=== PATIENT | male | born 1975 | race Caucasian/White ===

== ENCOUNTER 2016-11-25 09:36 | Emergency (ER) | payer OTHER ==
[2016-11-25] MEDS ORDERED: diphenhydrAMINE HCL 50 MG/ML VIAL IM ONE (10:07)
[2016-11-25] MEDS ORDERED: METHYLPREDNISOLONE ACETATE 80 MG/ML VIAL IM ONE (10:08)
[2016-11-25] MEDS ORDERED: diphenhydrAMINE HCL 50 MG/ML VIAL ONE (10:11)
[2016-11-25] MEDS ORDERED: METHYLPREDNISOLONE SOD SUCC/PF 40 MG/ML VIAL ONE (10:11)
--- NOTE | 2016-11-25 10:15 | ERNOTE ---
Integumentary HPI - Narrative Date of Service: 11/25/16 - General Presenting Symptoms: rash Time Seen by Provider: 11/25/16 09:59 Source: patient Exam Limitations: no limitations - Immun/Allergies/Home Medications Immunizations: IMMUNIZATION HX Immunizations Up to Date Yes History of Influenza Vaccine No Hx Pneumococcal Vaccination No Allergies/Adverse Reactions: Allergies Allergy/AdvReac Type Severity Reaction Status Date / Time No Known Allergies Allergy Verified 11/25/16 10:02 Home Medications: HOME MEDICATIONS predniSONE [Prednisone] 3 tab PO DAILY #9 tab 11/25/16 [Last Taken Unknown] - History of Present Illness Narrative: Pt. comes in with c/o rash on his inner arms in the anticubital spaces that is itchy and [place] after he scratches it. Pt. states taht it showed up after he was working in the [employer] yesterday. Pt. denies any SOB, CP, fever, or NVD. Review of Systems - Review of Systems Constitutional: Present: no symptoms reported. Absent: recent illness, fever, chills, weakness, fatigue, malaise EYE: Present: no symptoms reported ENT: Present: no symptoms reported Respiratory: Present: no symptoms reported. Absent: shortness of breath, cough , wheezing Cardiology: Present: no symptoms reported. Absent: chest pain, palpitations, edema Gastrointestinal/Abdominal: Present: no symptoms reported Genitourinary: Present: no symptoms reported Musculoskeletal: Present: no symptoms reported Skin: Present: rash Neurological: Present: no symptoms reported. Absent: headache, dizziness/light- headedness, numbness, tingling All Other Systems: All systems neg except as marked - Patient's Past Medical History Patient History - Medical: Chronic Pain Patient History - Cardiac/Respiratory: No pertinent hx Patient History - Cancer: No Hx of Cancer Patient History - Surgical Procedures: No surgical history Patient History - Other: None - Family History Father Family History - Medical: Diabetes Type 2 Family History - Cardiac/Respiratory: Hypertension, Hyperlipidemia - Social History Living Situations: home Abuse History: No History of abuse Psych History: No pertinent hx Smoking Status: Current every day smoker Have you smoked in the past 12 months: Yes Alcohol Use: none Drug Use: none - Immunizations Immunizations Up to Date: Yes Hx Pneumococcal Vaccination: No History of Influenza Vaccine: No Physical Exam - Physical Exam General Appearance: Present: wd/wn, alert, no apparent distress Eye Exam: Normal inspection: bilateral, PERRL: bilateral, EOMI: bilateral Ears, Nose, Throat: Present: normal ENT inspection, normal pharynx Neck: Present: normal inspection, nontender. Absent: lymphadenopathy (R), lymphadenopathy (L) Respiratory: Present: no respiratory distress, normal breath sounds, no accessory muscle use, chest nontender, lungs clear Cardiovascular/Chest: Present: regular rate, rhythm, no murmur, normal peripheral pulses Extremity Exam: Present: normal except -, other - rash as described below Neurological Exam: Present: alert, oriented, normal mood/affect, no motor/ sensory deficits Skin Exam: Present: skin rash - macularpapular volar AC 10cm x 5cm ED Progress - Vital Signs Patient's Vital Signs:: I have reviewed the patient's vital signs. Vital Signs: Vital Signs 11/25/16 09:58 Temperature 36.8 C Pulse Rate 84 Respiratory 18 Rate Blood Pressure 153/94 O2 Sat by Pulse 96 Oximetry - Progress/Reassessment Chief Complaint: Rash Departure Clinical Impression: Contact dermatitis Qualifiers: Contact dermatitis type: irritant Contact dermatitis trigger: non-food plants Qualified Code(s): L24.7 - Irritant contact dermatitis due to plants, except food - Departure Disposition: Home self-care Condition: Good Instructions: Contact Dermatitis Additional Instructions: Please follow up with primary provider in 2-3 days if not improved. Start taking 25mg every six hours starting at 4pm and continuing until clear. Start prednisone prescription tomorrow morning. Prescriptions: predniSONE [Prednisone] 3 tab PO DAILY #9 tab
[2016-11-25 10:55] VITALS: BP 131/76
== END 2016-11-25 10:53 | disposition home or self-care (01) ==
LOC: ER 09:36
DX: L24.7 Irritant contact dermatitis due to plants, except food (principal)

== ENCOUNTER 2017-06-24 02:37 | Emergency (ER) | payer OTHER ==
[2017-06-24 02:56] LABS: Urine Bilirubin Negative (NEGATIVE); Urine Blood Negative /ul (NEGATIVE); Urine Ketone Negative (NEGATIVE); Urine Nitrite Negative (NEGATIVE); Urine Protein Negative (NEGATIVE); Urine Specific Gravity 1.015 SP.GR. (1.005-1.030); Urine Urobilinogen Normal (NORMAL); Urine pH 6.5 pH (5.0-7.0)
[2017-06-24 03:06] LABS: Urine Appearance Clear; Urine Bacteria None Seen; Urine Color Yellow; Urine RBC None Seen /hpf (0-5); Urine WBC None Seen /hpf (0-5)
--- NOTE | 2017-06-24 03:14 | ERNOTE ---
Back Pain ER HPI Date of Service: 06/24/17 Presenting Symptoms: injury/pain to back Time Seen by Provider: 06/24/17 02:47 Source: patient Exam Limitations: no limitations Immunizations: IMMUNIZATION HX Immunizations Up to Date Yes History of Influenza Vaccine No Hx Pneumococcal Vaccination No Allergies/Adverse Reactions: Allergies No Known Allergies Allergy (Verified 06/24/17 02:40) Home Medications: HOME MEDICATIONS Cyclobenzaprine HCl [Flexeril] 10 mg PO TID PRN #30 tab 06/24/17 [Last Taken Unknown] traMADol HCL [Ultram] 50 mg PO QID PRN #30 tab 06/24/17 [Last Taken Unknown] Timing: Reports: constant, getting worse Quality/Severity: Reports: moderate, severe, stabbing Location of pain: Reports: lower back Activities at Onset: Reports: none Recent Injury?: Reports: no Modifying Factors - (Improves): Reports: nothing Modifying Factors - (Worsens): Reports: nothing Associated Symptoms: Reports: none Review of Systems - Narrative Narrative: patient had acute onset of right flank pain yesterday - Review of Systems Constitutional: Present: See HPI EYE: Present: no symptoms reported ENT: Present: no symptoms reported Respiratory: Present: no symptoms reported Cardiology: Present: no symptoms reported Gastrointestinal/Abdominal: Present: no symptoms reported Genitourinary: Present: See HPI Musculoskeletal: Present: no symptoms reported Skin: Present: no symptoms reported Neurological: Present: no symptoms reported Endocrine: Present: no symptoms reported Hematologic/Lymphatic: Present: no symptoms reported Psych: Present: no symptoms reported - Patient's Past Medical History Patient History - Medical: Chronic Pain Patient History - Cardiac/Respiratory: No pertinent hx Patient History - Cancer: No Hx of Cancer Patient History - Surgical Procedures: No surgical history Patient History - Other: None - Family History Family History:: no untoward family reactions to anesthesia, no family history of clotting disorders - Family History Mother Family History - Medical: Diabetes Type 2 Family History - Cardiac/Respiratory: Hypertension Family History - Cancer: Endometrial Father Family History - Medical: Diabetes Type 2 Family History - Cardiac/Respiratory: No pertinent hx, Hypertension, Hyperlipidemia Family History - Cancer: No pertinent family hx - Social History Living Situations: home Abuse History: No History of abuse Psych History: No pertinent hx Smoking Status: Current every day smoker Have you smoked in the past 12 months: Yes Do you dip or chew tobacco: No Alcohol Use: none Drug Use: none - Immunizations Immunizations Up to Date: Yes Hx Pneumococcal Vaccination: No History of Influenza Vaccine: No Physical Exam - Physical Exam General Appearance: Present: alert, moderate distress Head Exam: Present: normal inspection, no evidence of injury Eye Exam: Normal inspection: bilateral, PERRL: bilateral, EOMI: bilateral Ears, Nose, Throat: Present: normal ENT inspection Neck: Present: normal inspection, nontender Respiratory: Present: no respiratory distress, normal breath sounds, no accessory muscle use, chest nontender, lungs clear Cardiovascular/Chest: Present: regular rate, rhythm, no murmur, normal peripheral pulses Peripheral Pulses: N=norm/S=strong/W=weak/B=bound/A=absent: Carotid (R): Normal , Carotid (L): Normal, Radial (R): Normal, Radial (L): Normal, Femoral (R): Normal, Femoral (L): Normal Gastrointestinal/Abdominal: Present: normal bowel sounds, nontender, nondistended, soft, no organomegaly Back Exam: Present: CVA tenderness (R), decreased range of motion, muscle spasm Extremity Exam: Present: normal inspection, non-tender, normal range of motion, no edema Neurological Exam: Present: alert, oriented, normal mood/affect, no motor/ sensory deficits DTR: N=norm/NB=norm/brisk/A=abs/DD=dull/dimin/HC=hyperactive: Bicep (R): Normal , Bicep (L): Normal, Tricep (R): Normal, Tricep (L): Normal, Knee (R): Normal, Knee (L): Normal, Ankle (R): Normal, Ankle (L): Normal Skin Exam: Present: normal color, warm/dry Lymphatic Exam: Present: no adenopathy ED Progress - Results and Orders Patient's Lab Results:: I have reviewed the patient's lab results. - Vital Signs Patient's Vital Signs:: I have reviewed the patient's vital signs. Vital Signs: Vital Signs 06/24/17 02:40 Temperature 37.4 C Pulse Rate 89 Respiratory 14 Rate Blood Pressure 163/99 O2 Sat by Pulse 97 Oximetry - Progress/Reassessment Chief Complaint: Back Pain Progress:: Unchanged - Transfer of Care Expected Disposition: Discharge Departure Clinical Impression: Acute back pain - Departure Disposition: Home self-care Condition: Fair Instructions: Back Pain, Adult Prescriptions: Cyclobenzaprine HCl [Flexeril] 10 mg PO TID PRN #30 tab PRN Reason: MUSCLE SPASMS traMADol HCL [Ultram] 50 mg PO QID PRN #30 tab PRN Reason: Pain
[2017-06-24] MEDS ORDERED: traMADol HCL 50 MG TABLET PO ONE (03:15)
[2017-06-24] MEDS ORDERED: traMADol HCL 50 MG TABLET ONE (03:21)
[2017-06-24 03:35] VITALS: BP 160/97
== END 2017-06-24 03:32 | disposition home or self-care (01) ==
LOC: ER 02:37
DX: M54.9 Dorsalgia, unspecified (principal); F17.200 Nicotine dependence, unspecified, uncomplicated

== ENCOUNTER 2017-07-01 14:00 | Emergency (ER) | payer OTHER ==
[2017-07-01 14:30] LABS: Urine Appearance Slightly Cloudy; Urine Bilirubin Negative (NEGATIVE); Urine Blood Negative /ul (NEGATIVE); Urine Color Yellow; Urine Ketone Negative (NEGATIVE)
[2017-07-01 14:31] LABS: Urine Nitrite Negative (NEGATIVE); Urine Protein 30 mg/dL (NEGATIVE); Urine Urobilinogen Normal (NORMAL)
[2017-07-01 14:34] LABS: Urine Bacteria None Seen; Urine RBC None Seen /hpf (0-5); Urine WBC 0-5 /hpf (0-5)
[2017-07-01 14:35] LABS: Urine Amorphous Sediment Many - 3+ (NONE-FEW)
[2017-07-01 14:35] LABS: Hematocrit 44.2 % (42.0-52.0); Mean Cell Volume 87.9 fl (78-100); Mean Corpuscular Hemoglobin 29.8 pg (27-31); Mean Corpuscular Hgb Conc 33.9 g/dl (32-36); Mean Platelet Volume 9.6 fl (6.0-9.5); Neutrophil # 3.6 K/mm3 (1.3-6.0); Neutrophil % 56.7 % (42-75.0); Platelet Count 183 K/mm3 (150-450); Red Blood Count 5.03 M/mm3 (4.7-6.0); Red Cell Distribution Width 12.1 % (11.5-14.0); White Blood Count 6.3 K/mm3 (4.0-10.5)
--- NOTE | 2017-07-01 14:36 | ERNOTE ---
Abdominal HPI - Narrative Date of Service: 07/01/17 - General Chief Complaint: Abdominal Pain Time Seen by Provider: 07/01/17 14:14 Source: patient Exam Limitations: no limitations - Immun/Allergies/Home Medications Immunizatons: IMMUNIZATION HX Immunizations Up to Date Yes History of Influenza Vaccine No Hx Pneumococcal Vaccination No Allergies/Adverse Reactions: Allergies No Known Allergies Allergy (Verified 07/01/17 14:09) Home Medications: HOME MEDICATIONS Cyclobenzaprine HCl [Flexeril] 10 mg PO TID PRN #30 tab 06/24/17 [Last Taken Unknown] traMADol HCL [Ultram] 50 mg PO QID PRN #30 tab 06/24/17 [Last Taken Unknown] - History of Present Illness Narrative: 43 yo WM with onset of right flank pain on 06/24/2017. Seen in ED and thought to be musculoskeletal flank pain. Sent home on Tramadol and flexeril. He says the pain has increased and really had not improved. Also seems to have moved more anteriorly. Meds did not help. Pain increased with coughing and with some movements. Has been keeping him up at night. Has had some transient waves of nausea. Denies any fever, chills, diarrhea, food intolerance. Noted some increased pain with pushing during a BM. Says he has noticed his abdomen is distended and a little tense. Timing: getting worse Modifying Factors - (Worsens): Present: breathing, coughing Review of Systems - Review of Systems Constitutional: Present: no symptoms reported ENT: Present: no symptoms reported Respiratory: Present: no symptoms reported Cardiology: Present: no symptoms reported Genitourinary: Present: no symptoms reported Neurological: Present: no symptoms reported - Patient's Past Medical History Patient History - Medical: Chronic Pain Patient History - Cardiac/Respiratory: No pertinent hx Patient History - Cancer: No Hx of Cancer Patient History - Surgical Procedures: No surgical history Patient History - Other: None - Family History Mother Family History - Medical: Diabetes Type 2 Family History - Cardiac/Respiratory: Hypertension Family History - Cancer: Endometrial Father Family History - Medical: Diabetes Type 2 Family History - Cardiac/Respiratory: No pertinent hx, Hypertension, Hyperlipidemia Family History - Cancer: No pertinent family hx - Social History Living Situations: significant other Abuse History: No History of abuse Psych History: No pertinent hx Smoking Status: Current every day smoker Have you smoked in the past 12 months: Yes Do you dip or chew tobacco: No Alcohol Use: none Drug Use: none - Immunizations Immunizations Up to Date: Yes Hx Pneumococcal Vaccination: No History of Influenza Vaccine: No Physical Exam - Physical Exam General Appearance: Present: wd/wn, alert, no apparent distress Head Exam: Present: normal inspection Eye Exam: PERRL: bilateral, EOMI: bilateral Ears, Nose, Throat: Present: normal ENT inspection Neck: Present: normal inspection Respiratory: Present: no respiratory distress, normal breath sounds Cardiovascular/Chest: Present: regular rate, rhythm, no murmur Gastrointestinal/Abdominal: Present: tenderness - Right lower flank and RUQ subcostal, distended, guarding. Absent: rebound Extremity Exam: Present: normal inspection, non-tender, no edema Neurological Exam: Present: alert, oriented, no motor/sensory deficits ED Progress - Results and Orders Patient's Lab Results:: I have reviewed the patient's lab results. - Vital Signs Patient's Vital Signs:: I have reviewed the patient's vital signs. Vital Signs: Vital Signs 07/01/17 07/01/17 14:05 14:14 Temperature 36.7 C 36.7 C Pulse Rate 88 88 Respiratory 16 16 Rate Blood Pressure 103/81 103/81 O2 Sat by Pulse 99 99 Oximetry - CT/Ultrasound CT/Ultrasound Narrative: CT reviewed with radiologist. Asymmetry of right abdominal wall suggestive of edema - Progress/Reassessment Chief Complaint: Abdominal Pain Plan - Plan Plan: Use tylenol alternating with ibuprofen Use tramadol for breakthrough pain Apply hot moist compress Follow up with PCP Departure Clinical Impression: Abdominal wall pain in right flank - Departure Disposition: Home self-care Condition: Good Instructions: Muscle Pain, Adult Additional Instructions: Use ibuprofen 600 mg alternating with tylenol 975 mg every 3 hours Use tramadol for breakthrough pain Apply warm moist compress Follow up with PCP
[2017-07-01 14:48] LABS: Albumin * 3.7 gm/dl (3.4-5.0); BUN/Creatinine Ratio 15.9 (9.0-21.6); Bilirubin, Total 0.2 mg/dL (0.0-1.1); CRP 1.4 mg/dL (0.0-0.9); Ca. Corrected For Albumin 8.5 mg/dL (8.4-10.2); Calcium * 8.6 mg/dL (7.9-10.9); Total Protein 7.5 gm/dL (6.2-8.2)
[2017-07-01] MEDS ORDERED: HYDROmorphone HCL 2 MG/ML VIAL IV ONE (15:45)
[2017-07-01] MEDS ORDERED: DIATRIZOATE MEGLUMINE, SODIUM 30 ML BTL PO ONE (15:51)
[2017-07-01] MEDS ORDERED: HYDROmorphone HCL 2 MG/ML VIAL ONE (15:53)
[2017-07-01] MEDS ORDERED: DIATRIZOATE MEGLUMINE, SODIUM 30 ML BTL ONE (15:53)
[2017-07-01 18:56] VITALS: BP 110/78
== END 2017-07-01 18:40 | disposition home or self-care (01) ==
LOC: ER 14:00
DX: R10.9 Unspecified abdominal pain (principal); F17.200 Nicotine dependence, unspecified, uncomplicated

== ENCOUNTER 2017-10-29 12:36 | Emergency (ER) | payer SELFPAY ==
[2017-10-29] MEDS ORDERED: PROMETHAZINE HCL 25 MG/ML AMPUL IM ONE (13:18)
[2017-10-29] MEDS ORDERED: KETOROLAC TROMETHAMINE 60 MG/2 ML VIAL IM ONE ×2 (13:18→13:21)
--- NOTE | 2017-10-29 13:19 | ERNOTE ---
Medical Problem HPI - Narrative Date of Service: 10/29/17 - General Chief Complaint: General Assessment Time Seen by Provider: 10/29/17 12:45 Source: patient, RN notes reviewed Exam Limitations: no limitations - Immun/Allergies/Home Medications Immunizations: IMMUNIZATION HX Immunizations Up to Date Yes History of Influenza Vaccine Yes Hx Pneumococcal Vaccination No Allergies/Adverse Reactions: Allergies No Known Allergies Allergy (Verified 07/01/17 14:09) Home Medications: HOME MEDICATIONS NK [No Home Medication] 10/29/17 [Last Taken Unknown] - History of Present History Narrative: 42 year old male presents to the ED for body aches, headache, vomiting and a sore throat that began yesterday. He does not think he has a fever. He denies any sick contacts. He has not vomited since early this morning and has been tolerating oral intake since. Review of Systems - Review of Systems Constitutional: Present: fatigue, malaise. Absent: fever, chills EYE: Absent: eye pain, eye discharge ENT: Present: sore throat. Absent: ear pain, nose congestion, nasal drainage Respiratory: Absent: shortness of breath, cough Cardiology: Absent: chest pain, palpitations Gastrointestinal/Abdominal: Present: nausea, vomiting. Absent: diarrhea, abdominal pain Genitourinary: Absent: dysuria, decreased urinary output Musculoskeletal: Present: muscle pain. Absent: joint pain, joint swelling Skin: Absent: rash, lesions Neurological: Present: headache. Absent: dizziness/light-headedness Endocrine: Present: no symptoms reported Hematologic/Lymphatic: Present: no symptoms reported Psych: Present: no symptoms reported - Patient's Past Medical History Patient History - Medical: Chronic Pain Patient History - Cardiac/Respiratory: Hypertension Patient History - Cancer: No Hx of Cancer Patient History - Surgical Procedures: No surgical history Patient History - Other: None - Family History Mother Family History - Medical: Diabetes Type 2 Family History - Cardiac/Respiratory: Hypertension Family History - Cancer: Endometrial Father Family History - Medical: Diabetes Type 2 Family History - Cardiac/Respiratory: No pertinent hx, Hypertension, Hyperlipidemia Family History - Cancer: No pertinent family hx - Social History Living Situations: spouse Abuse History: No History of abuse Psych History: No pertinent hx Smoking Status: Current every day smoker Have you smoked in the past 12 months: Yes Do you dip or chew tobacco: No Alcohol Use: rarely Drug Use: none - Immunizations Immunizations Up to Date: Yes Hx Pneumococcal Vaccination: No History of Influenza Vaccine: Yes Physical Exam - Physical Exam General Appearance: Present: wd/wn, alert, no apparent distress Head Exam: Present: normal inspection, no evidence of injury Eye Exam: Normal inspection: bilateral, PERRL: bilateral Ears, Nose, Throat: Present: nasal congestion, pharyngeal erythema. Absent: abnormal TM (R), abnormal TM (L), sinus pain/drainage, tonsillar swelling Neck: Present: normal inspection, nontender, supple, full range of motion Respiratory: Present: no respiratory distress, normal breath sounds, no accessory muscle use, lungs clear Cardiovascular/Chest: Present: regular rate, rhythm, no murmur Extremity Exam: Present: normal inspection, normal range of motion Neurological Exam: Present: alert, oriented, normal mood/affect, no motor/ sensory deficits Skin Exam: Present: normal color, warm/dry ED Progress - Results and Orders Patient's Lab Results:: I have reviewed the patient's lab results. - Vital Signs Patient's Vital Signs:: I have reviewed the patient's vital signs. Vital Signs: Vital Signs 10/29/17 12:40 Temperature 36.6 C Pulse Rate 103 H Respiratory 16 Rate Blood Pressure 178/105 O2 Sat by Pulse 97 Oximetry - Progress/Reassessment Chief Complaint: General Assessment Progress:: Improved Departure Clinical Impression: Flu-like symptoms - Departure Disposition: Home self-care Condition: Stable Instructions: Influenza, Adult, [id number] Additional Instructions: Rest and drink plenty of fluids Tylenol and/or ibuprofen for pain/fever Stop smoking Follow up with your doctor to recheck your blood pressure when you are feeling better
[2017-10-29] MEDS ORDERED: PROMETHAZINE HCL 25 MG/ML AMPUL ONE (13:21)
[2017-10-29 13:31] VITALS: BP 152/95
== END 2017-10-29 13:55 | disposition home or self-care (01) ==
LOC: ER 12:36
DX: R68.89 Other general symptoms and signs (principal); F17.200 Nicotine dependence, unspecified, uncomplicated

== ENCOUNTER 2019-09-09 09:31 | Observation (INO) ==
[2019-09-09] MEDS ORDERED: ONDANSETRON HCL/PF 2 MG/ML VIAL IV ONE (10:07)
[2019-09-09] MEDS ORDERED: DIATRIZOATE MEGLUMINE, SODIUM 30 ML BTL PO ONE (10:07)
--- NOTE | 2019-09-09 10:15 | ERNOTE ---
Medical Problem HPI - General Chief Complaint: Nausea/Vomiting Time Seen by Provider: 09/09/19 10:00 Source: patient Exam Limitations: no limitations - Immun/Allergies/Home Medications Immunizations: IMMUNIZATION HX Immunizations Up to Date Yes History of Influenza Vaccine Yes Hx Pneumococcal Vaccination No Allergies/Adverse Reactions: Allergies No Known Allergies Allergy (Verified 09/09/19 09:45) Home Medications: HOME MEDICATIONS Losartan Potassium 100 mg PO DAILY 09/09/19 [Last Taken Unknown] amLODIPine BESYLATE [Norvasc] 5 mg pe PO DAILY 09/09/19 [Last Taken Unknown] hydrocodone 5 mg-acetaminophen 325 mg tablet 1 tab PO Q4H #20 tab 09/09/19 [Last Taken Unknown] - History of Present History Narrative: Patient has had intermittent right sided abdominal pain for quite a while (weeks?, month?) that has been more constant recently. He started vomiting early this am, about three times, last at 05:30, five episodes of diarrhea (watery, non bloody) Timing: constant Severity: moderate Review of Systems - Review of Systems Constitutional: Absent: recent illness, fever ENT: Present: no symptoms reported Respiratory: Absent: shortness of breath, cough Cardiology: Absent: chest pain Gastrointestinal/Abdominal: Present: See HPI, nausea, vomiting, diarrhea, abdominal pain Genitourinary: Absent: frequency, dysuria Musculoskeletal: Absent: back pain Skin: Absent: rash Neurological: Absent: headache Medical History (Last Reviewed 09/09/19 @ 14:21 by Wilda Mayorga MD) Hypertension Surgical History: Surgical History (Last Reviewed 09/09/19 @ 14:21 by Wilda Mayorga MD) History of back surgery Family History: Family History (Last Reviewed 09/09/19 @ 09:46 by Heidi Dexter RN) Mother Hypertension Sister Hypertension Father Hypertension Social History: (Last Reviewed 09/09/19 @ 09:46 by Heidi Dexter RN) Tobacco: Smoking Status: Current every day smoker tobacco type: cigarettes Smoking cigarettes per day: 40 Smoking packs per day: 2 Alcohol: alcohol intake frequency: holiday/special occasion Substance Use: substance use type: does not use Physical Exam - Physical Exam General Appearance: Present: wd/wn, alert, no apparent distress Respiratory: Present: no respiratory distress, normal breath sounds, no accessory muscle use, lungs clear Cardiovascular/Chest: Present: regular rate, rhythm, no murmur Gastrointestinal/Abdominal: Present: normal bowel sounds, nondistended, soft, tenderness - right sided abdomen, max RLQ, McBurney sign, Psoas sign. Absent: guarding, rebound, Obturator sign Extremity Exam: Present: no edema Neurological Exam: Present: alert, oriented, normal mood/affect Skin Exam: Present: normal color, warm/dry Progress - Results and Orders Patient's Lab Results:: I have reviewed the patient's lab results. - Vital Signs Patient's Vital Signs:: I have reviewed the patient's vital signs. Vital Signs: Vital Signs 09/09/19 09:42 Temperature 36.1 C Pulse Rate 85 Respiratory Rate 14 Blood Pressure 157/76 H O2 Sat by Pulse Oximetry 100 - CT/Ultrasound CT/Ultrasound Narrative: CT abdomen/pelvis: IMPRESSION: ACUTE UNCOMPLICATED TIP APPENDICITIS. - Progress/Reassessment Chief Complaint: Nausea/Vomiting Progress Note-Subjective: 09/09/19 13:[address] Godoy, will see patient in ER 09/09/19 13:15 discussed diagnosis with patient, no vomiting or diarrhea since getting here pain tolerable, doesn't require pain medication at this time Departure Clinical Impression: Appendicitis, acute Qualifiers: Acute appendicitis type: unspecified acute appendicitis type Qualified Code(s): K35.80 - Unspecified acute appendicitis - Departure Disposition: Still a patient Condition: Stable
[2019-09-09 10:25] LABS: Hematocrit 49.4 % (42.0-52.0); Hemoglobin 17.3 gm/dL (13.5-18.0); Mean Cell Volume 90.6 fl (78-100); Mean Corpuscular Hemoglobin 31.7 pg (27-31); Mean Platelet Volume 9.7 fl (8-11.3); Neutrophil # 5.4 K/mm3 (1.3-6.0); Platelet Count 221 K/mm3 (150-450); Red Blood Count 5.45 M/mm3 (4.7-6.0); Red Cell Distribution Width 12.3 % (11.5-14.0)
[2019-09-09 10:36] LABS: Albumin * 3.5 gm/dl (3.4-5.0); Anion Gap 14.1 mmol/L (6.8-13.8); BUN/Creatinine Ratio 10.6 (9.0-21.6); Bilirubin, Total 0.4 mg/dL (0.0-1.1); Ca. Corrected For Albumin 8.8 mg/dL (8.4-10.2); Calcium * 8.7 mg/dL (7.9-10.9); Carbon Dioxide 26.5 mmol/L (24-32.6); Potassium 3.6 mmol/L (3.4-4.6); Total Protein 7.2 gm/dL (6.2-8.2)
[2019-09-09 11:43] LABS: Urine Bilirubin Negative (NEGATIVE); Urine Blood Negative /ul (NEGATIVE); Urine Ketone Negative (NEGATIVE); Urine Nitrite Negative (NEGATIVE); Urine Protein Negative (NEGATIVE); Urine Urobilinogen Normal (NORMAL)
[2019-09-09 11:51] LABS: Urine Appearance Clear (CLEAR); Urine Bacteria None Seen; Urine Color Yellow; Urine RBC None Seen /hpf (0-5); Urine WBC None Seen /hpf (0-5)
[2019-09-09] MEDS ORDERED: RINGER'S SOLUTION,LACTATED 1,000 ML IV ONE (13:44)
--- NOTE | 2019-09-09 13:50 | HP ---
Chief Complaint - Chief Complaint Date of Service: 09/09/19 Time of Service: 13:45 Chief Complaint: Acute appendicitis History of Present Illness: Arley is a pleasant 44-year-old gentleman who has had right lower quadrant pain off and on for years. He had nausea and vomiting. Over the last couple of weeks the pain is become more intense. He has never had abdominal surgery before. He had a CT scan which shows tip appendicitis. He is otherwise very healthy and just has hypertension. Medical History (Last Reviewed 09/09/19 @ 09:46 by Heidi Dexter RN) Hypertension Surgical History: Surgical History (Last Reviewed 09/09/19 @ 09:46 by Heidi Dexter RN) History of back surgery Family History: Family History (Last Reviewed 09/09/19 @ 09:46 by Heidi Dexter RN) Mother Hypertension Sister Hypertension Father Hypertension Social History: (Last Reviewed 09/09/19 @ 09:46 by Heidi Dexter RN) Tobacco: Smoking Status: Current every day smoker tobacco type: cigarettes Smoking cigarettes per day: 40 Smoking packs per day: 2 Alcohol: alcohol intake frequency: holiday/special occasion Substance Use: substance use type: does not use Review Of Systems (GEN) - Review of Systems Generalized/Overall Review: Present: No Symptoms Reported EENTM: Present: No Symptoms Reported Respiratory: Present: No Symptoms Reported Cardiac: Present: No Symptoms Reported Abdominal: Present: Nausea, Vomiting, Abdominal Pain Genitourinary: Present: No Symptoms Reported Musculoskeletal: Present: No Symptoms Reported Neurological: Present: No Symptoms Reported Skin: Present: No Symptoms Reported Endocrine: Present: No Symptoms Reported Immunizations: IMMUNIZATION HX Immunizations Up to Date Yes History of Influenza Vaccine Yes Hx Pneumococcal Vaccination No Allergies/Adverse Reactions: Allergies Allergy/AdvReac Type Severity Reaction Status Date / Time No Known Allergies Allergy Verified 09/09/19 09:45 Home Medications: HOME MEDICATIONS Losartan Potassium 100 mg PO DAILY 09/09/19 [Last Taken Unknown] amLODIPine BESYLATE [Norvasc] 5 mg pe PO DAILY 09/09/19 [Last Taken Unknown] Exam - Exam Vital Signs: Vital Signs - Last Taken Temp 36.1 C 09/09/19 09:42 Pulse 85 09/09/19 09:42 Resp 14 09/09/19 09:42 BP 157/76 H 09/09/19 09:42 Pulse Ox 100 09/09/19 09:42 Constitutional: Present: Alert, Oriented x3, Cooperative ENT Exam: Present: normal ENT inspection Eye Exam: bilateral eye: normal inspection Neck: Present: supple Back Exam: Present: normal inspection Breasts: Present: Exam deferred Respiratory: Present: lungs clear, normal breath sounds Cardiovascular/Chest: Present: regular rate, rhythm, no edema Abdomen: Present: soft, nondistended, no rebound tenderness, no masses, obese, tender. Absent: guarding, rigidity, rebound tenderness /Rectal: Present: Exam deferred Extremity: Present: normal range of motion Skin Exam: Present: normal color Lymphatic: Present: no adenopathy Neurologic: Present: fisher trot line II-XII nml as tested Appearance: Present: appropriate appearance, appropriate insight Eye contact: Present: cooperative, good eye contact, normal speech Thoughts: Present: normal thought pattern Diagnostic Studies: Abnormal Lab Results 09/09/19 09/09/19 Range/Units 10:17 10:17 MCH 31.7 H (27-31) pg Anion Gap 14.1 H (6.8-13.8) mmol/L Est GFR (Non-Af Amer) 140 H D (60-130) mL/min Laboratory Results WBC 8.0 K/mm3 (4.0-10.5) 09/09/19 10:17 RBC 5.45 M/mm3 (4.7-6.0) 09/09/19 10:17 Hgb 17.3 gm/dL (13.5-18.0) 09/09/19 10:17 Hct 49.4 % (42.0-52.0) 09/09/19 10:17 MCV 90.6 fl (78-100) 09/09/19 10:17 MCH 31.7 pg (27-31) H 09/09/19 10:17 MCHC 35.0 g/dl (32-36) 09/09/19 10:17 RDW 12.3 % (11.5-14.0) 09/09/19 10:17 Plt Count 221 K/mm3 (150-450) 09/09/19 10:17 MPV 9.7 fl (8-11.3) 09/09/19 10:17 Immature Gran % (Auto) 0.40 % (0.001-0.429) 09/09/19 10:17 Immature Gran # (Auto) 0.03 K/mm3 (0.000-0.0310) 09/09/19 10:17 Neutrophils % 68.0 % (42-75.0) 09/09/19 10:17 Lymphocytes % 23.7 % (20-51) 09/09/19 10:17 Monocytes % 6.3 % (0.0-9) 09/09/19 10:17 Eosinophils % 1.0 % (0.0-3.0) 09/09/19 10:17 Basophils % 0.6 % (0.0-1.0) 09/09/19 10:17 Nucleated RBC % 0.0 k/mm3 (0-1) 09/09/19 10:17 Neutrophils # 5.4 K/mm3 (1.3-6.0) 09/09/19 10:17 Lymphocytes # 1.89 k/mm3 (1.5-3.5) 09/09/19 10:17 Monocytes # 0.5 k/mm3 (0.0-1.0) 09/09/19 10:17 Eosinophils # 0.1 k/mm3 (0.0-0.7) 09/09/19 10:17 Absolute Basophils 0.1 k/mm3 (0.0-0.1) 09/09/19 10:17 Sodium 141 mmol/L (132-142) 09/09/19 10:17 Plasma Sodium 141 mmol/L (130-142) 09/09/19 10:17 Potassium 3.6 mmol/L (3.4-4.6) 09/09/19 10:17 Chloride 104 mmol/L (97-106) 09/09/19 10:17 Carbon Dioxide 26.5 mmol/L (24-32.6) 09/09/19 10:17 Anion Gap 14.1 mmol/L (6.8-13.8) H 09/09/19 10:17 BUN 7 mg/dL (6-23) 09/09/19 10:17 Creatinine 0.66 mg/dL (0.4-1.4) 09/09/19 10:17 Est GFR (Non-Af Amer) 140 mL/min (60-130) H D 09/09/19 10:17 BUN/Creatinine Ratio 10.6 (9.0-21.6) 09/09/19 10:17 Random Glucose 107 mg/dL (70-110) 09/09/19 10:17 Calcium 8.7 mg/dL (7.9-10.9) 09/09/19 10:17 Calcium Adj for Albumin 8.8 mg/dL (8.4-10.2) 09/09/19 10:17 Total Bilirubin 0.4 mg/dL (0.0-1.1) 09/09/19 10:17 AST 17 U/L (0-48) 09/09/19 10:17 ALT 42 U/L (19-67) 09/09/19 10:17 Alkaline Phosphatase 79 U/L (50-170) 09/09/19 10:17 Total Protein 7.2 gm/dL (6.2-8.2) 09/09/19 10:17 Albumin 3.5 gm/dl (3.4-5.0) 09/09/19 10:17 Lipase 98 U/L (73-393) 09/09/19 10:17 Urine Color Yellow 09/09/19 Unknown Urine Appearance Clear (CLEAR) 09/09/19 Unknown Urine pH 7.0 pH (5.0-7.0) 09/09/19 Unknown Ur Specific [place] 1.010 SP.GR. (1.005-1.030) 09/09/19 Unknown Urine Protein Negative mg/dL (NEGATIVE) 09/09/19 Unknown Urine Glucose (UA) Negative mg/dL (NEGATIVE) 09/09/19 Unknown Urine Ketones Negative mg/dL (NEGATIVE) 09/09/19 Unknown Urine Blood Negative /ul (NEGATIVE) 09/09/19 Unknown Urine Nitrate Negative (NEGATIVE) 09/09/19 Unknown Urine Bilirubin Negative mg/dl (NEGATIVE) 09/09/19 Unknown Urine Urobilinogen Normal EU/dl (NORMAL) 09/09/19 Unknown Ur Leukocyte Esterase Negative /ul (NEGATIVE) 09/09/19 Unknown Urine RBC None seen /hpf (0-5) 09/09/19 Unknown Urine WBC None seen /hpf (0-5) 09/09/19 Unknown Ur Epithelial Cells None seen /hpf (0-5) 09/09/19 Unknown Urine Bacteria None seen (NONE) 09/09/19 Unknown Urine Culture Comments No culture indicated 09/09/19 Unknown Assessment/Plan - Narrative Narrative: We will plan to give him a dose of antibiotic. We will plan to go to the OR for laparoscopic possible open appendectomy. Risks and benefits of the procedure were discussed with the patient and he voices understanding. - Assessment/Plan (1) Acute appendicitis Problem: Acute
[2019-09-09] MEDS ORDERED: NEOSTIGMINE METHYLSULFATE 1 MG/ML VIAL ONE (13:59)
[2019-09-09] MEDS ORDERED: fentaNYL CITRATE/PF 50 MCG/ML AMPUL ONE (13:59)
[2019-09-09] MEDS ORDERED: KETOROLAC TROMETHAMINE 30 MG/ML VIAL ONE (13:59)
[2019-09-09] MEDS ORDERED: ONDANSETRON HCL/PF 2 MG/ML VIAL ONE (13:59)
[2019-09-09] MEDS ORDERED: PROPOFOL VIAL IV ONE (14:00)
[2019-09-09] MEDS ORDERED: GLYCOPYRROLATE 0.2 MG/ML VIAL ONE (14:00)
[2019-09-09] MEDS ORDERED: ROCURONIUM BROMIDE 10 MG/ML VIAL ONE (14:20)
[2019-09-09] MEDS ORDERED: SUCCINYLCHOLINE CHLORIDE 20 MG/ML VIAL ONE (14:21)
[2019-09-09] MEDS ORDERED: SEVOFLURANE 250 ML BTL IH ONE (14:32)
[2019-09-09] MEDS ORDERED: CEFEPIME HCL 1 GM/100 ML BAG IV ONE (15:00)
[2019-09-09] MEDS ORDERED: BUPIVACAINE HCL 50 ML VIAL IJ ONE (15:26)
[2019-09-09] MEDS ORDERED: HYDROcodone/ACETAMINOPHEN 1 EACH TABLET PO PRN (15:36)
[2019-09-09] MEDS ORDERED: HYDROmorphone HCL 1 MG/ML DISP.SYRIN IV PRN (15:36)
[2019-09-09] MEDS ORDERED: ONDANSETRON HCL/PF 2 MG/ML VIAL IV PRN (15:36)
--- NOTE | 2019-09-09 15:36 | OR ---
Operative Report - Dictated Report Narrative: Date of Service: 09/09/19 Procedure: laparoscopic appendectomy Pre-procedure diagnosis: acute appendicitis Post-procedure diagnosis: same Surgeon: Dr. Socorro Godoy Anesthesia: general Indication for procedure: Jesus is a pleasant 44-year-old gentleman who was found to have acute appendicitis Description of procedure: After appropriate informed consent was obtained patient was taken to the operating room, placed in the supine position. General anesthesia was achieved. The RN placed a Castillo catheter. The patient was prepped and draped in the usual sterile fashion. A 5 mm periumbilical incision was made, hemostat was used to dissect down to the fascia. A Veress needle was inserted, a saline drop test was performed which was satisfactory. The abdomen was insufflated to 15 mmHg. A 5mm blunt trocar was placed at the umbilicus. The camera was inserted, there was no evidence of a trocar injury. A 12 mm trocar was placed in the left lower quadrant of the abdomen. A 5 mm trocar was placed in the suprapubic region. The patient was placed in a head down, rotated left position, to facilitate exposure. The appendix was identified, it appeared consistent with acute appendicitis. A window was made in the mesoappendix. The 45 mm echelon stapler with the white load was placed across the base of the appendix. There was good hemostasis. The echelon 45 mm stapler with a white load was then placed across the mesoappendix. There was good hemostasis. The appendix was removed through an Endo Catch bag. The abdomen was inspected and the staple lines were intact, with good hemostasis. The remainder of the abdomen was inspected and was satisfactory. The 12 mm trocar site was closed with an 0 Vicryl suture using a PMI device. The abdomen was desufflated. Local anesthetic was injected. The incisions were closed with inverted interrupted 4- 0 Monocryl sutures. Mastisol and Steri-Strips were applied. The patient tolerated the procedure well and was transported to the PACU in satisfactory condition. Estimated blood loss: minimal Complications: none Specimens to pathology: appendix Disposition: The patient will be admitted to the floor for observation.
--- NOTE | 2019-09-09 15:43 | ANES ---
Post Anesthesia Discharge - Transfer of Care Transfer of Care handoff given to nurse: Yes - Discharge from PACU Discharge from PACU when meets criteria: Yes
--- NOTE | 2019-09-09 15:44 | ANES ---
Anesthesia Pre Procedure Eval Vitals/Labs: Last Vital Signs Temp 36.1 C 09/09/19 09:42 Pulse 81 09/09/19 14:30 Resp 14 09/09/19 14:30 BP 139/91 H 09/09/19 14:30 Pulse Ox 97 09/09/19 14:30 HOME MEDICATIONS Losartan Potassium 100 mg PO DAILY 09/09/19 [Last Taken Unknown] amLODIPine BESYLATE [Norvasc] 5 mg pe PO DAILY 09/09/19 [Last Taken Unknown] hydrocodone 5 mg-acetaminophen 325 mg tablet 1 tab PO Q4H #20 tab 09/09/19 [Last Taken Unknown] Allergies/Adverse Reactions: Allergies Allergy/AdvReac Type Severity Reaction Status Date / Time No Known Allergies Allergy Verified 09/09/19 09:45 - Planned Procedure Planned Procedure: Abd Pain/Vomiting/Diarrhea Medication List Reviewed:: Yes Allergies Verified: Yes Medical History (Last Reviewed 09/09/19 @ 15:43 by Armani Mathew CRNA) Hypertension Surgical History (Last Reviewed 09/09/19 @ 15:43 by Armani Mathew CRNA) History of back surgery Family History (Last Reviewed 09/09/19 @ 15:43 by Armani Mathew CRNA) Mother Hypertension Sister Hypertension Father Hypertension - Family Anesthesia History Family History:: no untoward family reactions to anesthesia - Airway/Neck/Teeth Denture Type: Full upper, Full lower Neck Exam: full range of motion Mallampatti Score: 2 Thyromental (T-M) distance: > 6 cm Mandibulo Hyoid distance: > 3 cm - Respiratory Respiratory Physical: lungs clear Smoking Status: Current every day smoker Discussed smoking cessation including day of surgery: Yes Sleep Apnea currently treated: No Sleep Apnea by current assessment: No - Cardiovascular Cardiac History: hypertension Tolerate Activity: Fair Heart Sounds: S1 & S2, Regular - Gastrointestinal NPO since: 1130 - Anesthesia Assessment and Plan ASA Class: PS, II, E Anesthesia Type Plan: General ET Planned difficult intubation/equipment available: No
[2019-09-09] MEDS ORDERED: POTASSIUM CHLORIDE 20 MEQ in DEXTROSE 5%-0.5 NORMAL SALINE 990 ML IV SCH (15:45)
[2019-09-09] MEDS ORDERED: ACETAMINOPHEN 1,000 MG/100 ML BTL IV ONE (15:53)
--- NOTE | 2019-09-09 15:55 | ANES ---
Post Anesthesia Assessment - Vital Signs Vitals: Last Vital Signs Temp 36.1 C 09/09/19 09:42 Pulse 81 09/09/19 14:30 Resp 14 09/09/19 14:30 BP 139/91 H 09/09/19 14:30 Pulse Ox 97 09/09/19 14:30 Airway Patency: Normal - Mental Status Level Of Consciousness: Awake - Pain Level Pain Score: 5 - N/V Assessment Nausea/Vomiting Presence: None Dehydration:: No
[2019-09-09] MEDS ORDERED: NICOTINE 21 MG PATC TD SCH (17:15)
[2019-09-09] MEDS: oxyCODONE HCL/ACETAMINOPHEN 1 TAB TABLET PO PRN (20:54)
[2019-09-10] MEDS: IBUPROFEN 800 MG TABLET PO PRN ×2 (01:31→07:45)
[2019-09-10] MEDS: oxyCODONE HCL/ACETAMINOPHEN 1 TAB TABLET PO PRN (03:15)
--- NOTE | 2019-09-10 07:38 | DS ---
(1) Acute appendicitis Problem: Acute Qualifiers: Acute appendicitis type: unspecified acute appendicitis type Qualified Code(s): K35.80 - Unspecified acute appendicitis Date of Discharge:: 09/10/19 Description of Stay: Jesus is a pleasant 44-year-old gentleman who was admitted through the emergency room. He was taken to the OR for laparoscopic appendectomy. This was uneventful. He has recovered well and is ready for discharge. Procedures Performed: see notes below List Procedures: Laparoscopic appendectomy Results and Findings: Lab Pending Results 09/09/19 10:17: WBC 8.0, RBC 5.45, Hgb 17.3, Hct 49.4, MCV 90.6, MCH 31.7 H, MCHC 35.0, RDW 12.3, Plt Count 221, MPV 9.7, Immature Gran % (Auto) 0.40, Immature Gran # (Auto) 0.03, Neutrophils % 68.0, Lymphocytes % 23.7, Monocytes % 6.3, Eosinophils % 1.0, Basophils % 0.6, Nucleated RBC % 0.0, Neutrophils # 5.4, Lymphocytes # 1.89, Monocytes # 0.5, Eosinophils # 0.1, Absolute Basophils 0.1 09/09/19 10:17: Sodium 141, Plasma Sodium 141, Potassium 3.6, Chloride 104, Carbon Dioxide 26.5, Anion Gap 14.1 H, BUN 7, Creatinine 0.66, Est GFR (Non-Af Amer) 140 H D, BUN/Creatinine Ratio 10.6, Random Glucose 107, Calcium 8.7, Calcium Adj for Albumin 8.8, Total Bilirubin 0.4, AST 17, ALT 42, Alkaline Phosphatase 79, Total Protein 7.2, Albumin 3.5, Lipase 98 09/09/19 15:30: Pathology Specimen Spec to path 09/09/19 : Urine Color Yellow, Urine Appearance Clear, Urine pH 7.0, Ur Specific [place] 1.010, Urine Protein Negative, Urine Glucose (UA) Negative, Urine Ketones Negative, Urine Blood Negative, Urine Nitrate Negative, Urine Bilirubin Negative, Urine Urobilinogen Normal, Ur Leukocyte Esterase Negative, Urine RBC None seen, Urine WBC None seen, Ur Epithelial Cells None seen, Urine Bacteria None seen, Urine Culture Comments No culture indicated Discharge Location: Home Disposition: Home self-care Condition: Stable Discharge Activity: Activity as tolerated Discharge Diet: General/regular food Prescriptions (Any new or edited meds): oxyCODONE HCL/ACETAMINOPHEN [Percocet 5 MG/325 MG] 2 tab PO Q6H PRN #20 tab PRN Reason: Pain Transmission Status: Sent to [facility] Complete Home Medications List: Complete Home Medication List: Losartan Potassium 100 mg PO DAILY 09/09/19 amLODIPine BESYLATE [Norvasc] 5 mg pe PO DAILY 09/09/19 Ibuprofen [Motrin] 800 mg PO Q6H PRN tab 09/10/19 oxyCODONE HCL/ACETAMINOPHEN [Percocet 5 MG/325 MG] 2 tab PO Q6H PRN #20 tab 09/10/19
[2019-09-10 09:13] VITALS: BP 135/88
== END 2019-09-10 09:45 | disposition home or self-care (01) ==
LOC: ER 09:31 → MS 15:21 → AMB 15:21
PROVIDERS: ADMIT Surgery; ATTEND Surgery
CPT/HCPCS: 36415; 74177; 80053; 81001; 83690; 85025; 88304; 99285; G0378; J0131; J2405; Q9963; Q9967